=== PATIENT | female | born 1970 | race Caucasian/White ===

== ENCOUNTER 2017-01-27 08:50 | Emergency (ER) | payer MEDICAID ==
[2017-01-27 09:45] LABS: BASOPHIL % 0.3 % (0-2); PLATELET COUNT 342 x10^3mcL (130-400); RED CELL DISTRIBUTION WIDTH 13.3 % (11.5-14.5)
[2017-01-27 09:59] LABS: CALCIUM 8.9 mg/dL (8.5-10.1); CHLORIDE SERUM 100 mmol/L (98-107); CREATININE SERUM 0.9 mg/dL (0.6-1.0); GFR1 > 60 mL/min; GLUCOSE SERUM 142 mg/dL (74-106); POTASSIUM SERUM 3.4 mmol/L (3.5-5.1); SODIUM SERUM 134 mmol/L (136-145)
[2017-01-27 10:05] LABS: microscopic required? YES; urine erythrocyte NEGATIVE (NEGATIVE)
[2017-01-27 10:06] LABS: ALBUMIN 3.3 g/dL (3.4-5.0); ALKALINE PHOSPHATASE 74 U/L (46-116); ALT/SGPT 30 U/L (14-59); AMYLASE 37 U/L (25-115); AST/SGOT 22 U/L (15-37); BILIRUBIN TOTAL 0.3 mg/dL (0.20-1.00); LIPASE 109 IU/L (73-393); MAGNESIUM 1.6 mg/dL (1.8-2.4); TOTAL PROTEIN, SERUM 7.7 g/dL (6.4-8.2)
[2017-01-27 10:31] VITALS: BP 138/90
== END 2017-01-27 10:48 | disposition home or self-care (01) ==
LOC: ED 08:50
PROVIDERS: Emergency Medicine
DX: K29.60 Other gastritis without bleeding (principal); F41.9 Anxiety disorder, unspecified; E46 Unspecified protein-calorie malnutrition; E87.8 Other disorders of electrolyte and fluid balance, not elsewhere classified
CPT/HCPCS: J2550; J7030; J8597; Q0162